=== PATIENT | male | born 1980 | race American Indian/Alaskan Native ===

== ENCOUNTER 2018-06-06 11:56 | Emergency (ER) | payer SELFPAY ==
--- NOTE | 2018-06-06 12:51 | Emergency Department Report ---
Chief Complaint: Medical Clearance Stated Complaint: HBP Time Seen by Provider: 06/06/18 12:47 - HPI History of Present Illness: This is a 37 y.o. male that presents to ED for elevated blood pressure. Patient states he was walking by [email or web address] [facility] when he started feeling dizzy. A inclinometer tester checked his blood pressure and told him he need to go directly to the emergency room. - ROS Review of Systems: dizziness - Exam Vital Signs: Vital Signs 06/06/18 12:49 Temperature 97.7 F Pulse Rate 84 Respiratory 18 Rate Blood Pressure 163/113 O2 Sat by Pulse 98 Oximetry MSE screening note: Focused history and physical exam performed. Due to findings the following was ordered: fast track for further evaluation. ED Disposition for MSE Condition: Stable
[2018-06-06] MEDS ORDERED: CATAPRES PO ONE (13:20)
--- NOTE | 2018-06-06 13:22 | Emergency Department Report ---
ED Recheck HPI - General Chief Complaint: Medical Clearance Stated Complaint: HBP Time Seen by Provider: 06/06/18 12:47 Source: patient Mode of arrival: Ambulatory Limitations: No Limitations - History of Present Illness Initial Comments: 37 yo AA male, new to the area, was walking when he felt dizzy. He was near fire dept so he went in and they checked his bp it was 195/120- they told him to come to ER BP on arrival 163/113 on arrival no cp no sob no dizziness on arrival no focal neuro def pmh none psh none rx none mom a/w with htn dad a/w cig denies drugs or etoh -: Sudden - Related Data Previous Rx's Medication Instructions Recorded Last Taken Type Amlodipine Besylate [Norvasc] 5 mg PO DAILY #30 tablet 06/06/18 Unknown Rx Allergies Allergy/AdvReac Type Severity Reaction Status Date / Time No Known Allergies Allergy Unverified 06/06/18 12:04 ED Review of Systems ROS: Stated complaint: HBP Other details as noted in HPI Comment: All other systems reviewed and negative Constitutional: denies: see HPI Eyes: denies: eye pain ENT: denies: ear pain Respiratory: denies: see HPI Cardiovascular: denies: dyspnea on exertion Endocrine: denies: excessive sweating Gastrointestinal: denies: abdominal pain Genitourinary: denies: as per HPI Musculoskeletal: denies: back pain Skin: denies: lesions Neurological: as per HPI. denies: headache Psychiatric: denies: anxiety Hematological/Lymphatic: denies: easy bleeding ED Past Medical Hx - Past Medical History Previous Medical History?: No - Surgical History Past Surgical History?: No - Family History Family history: no significant - Social History Smoking Status: Current Every Day Smoker Substance Use Type: None - Medications Home Medications: Home Medications Medication Instructions Recorded Confirmed Last Taken Type Amlodipine Besylate [Norvasc] 5 mg PO DAILY #30 tablet 06/06/18 Unknown Rx ED Physical Exam - General Limitations: No Limitations General appearance: alert, in no apparent distress - Head Head exam: Present: atraumatic - Eye Eye exam: Present: normal appearance, PERRL - ENT ENT exam: Present: mucous membranes moist - Neck Neck exam: Present: normal inspection - Respiratory Respiratory exam: Present: normal lung sounds bilaterally - Cardiovascular Cardiovascular Exam: Present: regular rate - GI/Abdominal GI/Abdominal exam: Present: soft, normal bowel sounds - Rectal Rectal exam: Present: deferred - exam: Present: normal inspection External exam: Present: normal external exam - Extremities Exam Extremities exam: Present: normal inspection, full ROM - Back Exam Back exam: Present: normal inspection, full ROM, tenderness - Neurological Exam Neurological exam: Present: alert, oriented X3, CN II-XII intact, normal gait - Psychiatric Psychiatric exam: Present: normal affect, normal mood - Skin Skin exam: Present: warm, dry, intact ED Course Vital Signs 06/06/18 06/06/18 12:49 13:32 Temperature 97.7 F Pulse Rate 84 79 Respiratory 18 Rate Blood Pressure 163/113 171/108 O2 Sat by Pulse 98 Oximetry ED Recheck MDM - Medical Decision Making medicated with clonidine labs noted Cr normal reexam - no focal neuro def will dc home with [facility] and follow up with pcp referral Labs 06/06/18 06/06/18 13:39 13:39 WBC 7.1 RBC 5.18 H Hgb 15.4 H Hct 43.9 MCV 85 MCH 30 MCHC 35 H RDW 13.9 Plt Count 283 Lymph % (Auto) 43.2 H Gonzales % (Auto) 9.3 H Eos % (Auto) 3.4 Baso % (Auto) 1.0 Lymph # 3.1 Gonzales # 0.7 Eos # 0.2 Baso # 0.1 Seg Neutrophils % 43.1 Seg Neutrophils # 3.0 Sodium 143 Potassium 4.4 Chloride 108.2 H Carbon Dioxide 23 Anion Gap 16 BUN 15 Creatinine 1.2 Estimated GFR > 60 BUN/Creatinine Ratio 13 Glucose 114 H Calcium 9.1 Lab Results 06/06/18 06/06/18 Range/Units 13:39 13:39 WBC 7.1 (4.5-11.0) K/mm3 RBC 5.18 H (3.65-5.03) M/mm3 Hgb 15.4 H (11.8-15.2) gm/dl Hct 43.9 (35.5-45.6) % MCV 85 (84-94) fl MCH 30 (28-32) pg MCHC 35 H (32-34) % RDW 13.9 (13.2-15.2) % Plt Count 283 (140-440) K/mm3 Lymph % (Auto) 43.2 H (13.4-35.0) % Gonzales % (Auto) 9.3 H (0.0-7.3) % Eos % (Auto) 3.4 (0.0-4.3) % Baso % (Auto) 1.0 (0.0-1.8) % Lymph # 3.1 (1.2-5.4) K/mm3 Gonzales # 0.7 (0.0-0.8) K/mm3 Eos # 0.2 (0.0-0.4) K/mm3 Baso # 0.1 (0.0-0.1) K/mm3 Seg Neutrophils % 43.1 (40.0-70.0) % Seg Neutrophils # 3.0 (1.8-7.7) K/mm3 Sodium 143 (137-145) mmol/L Potassium 4.4 (3.6-5.0) mmol/L Chloride 108.2 H (98-107) mmol/L Carbon Dioxide 23 (22-30) mmol/L Anion Gap 16 mmol/L BUN 15 (9-20) mg/dL Creatinine 1.2 (0.8-1.5) mg/dL Estimated GFR > 60 ml/min BUN/Creatinine Ratio 13 % Glucose 114 H (75-100) mg/dL Calcium 9.1 (8.4-10.2) mg/dL Vital Signs 06/06/18 06/06/18 12:49 13:32 Temperature 97.7 F Pulse Rate 84 79 Respiratory 18 Rate Blood Pressure 163/113 171/108 O2 Sat by Pulse 98 Oximetry Critical care attestation.: If time is entered above; I have spent that time in minutes in the direct care of this critically ill patient, excluding procedure time. ED Disposition Clinical Impression: Hypertension Disposition: - TO HOME OR SELFCARE Is pt being admited?: No Does the pt Need Aspirin: No Condition: Stable Instructions: DASH Eating Plan (ED), Hypertension (ED) Additional Instructions: MED ORDERED today daily follow up with pcp referral below HYDRATE WELL WITH WATER DIET - low fat, low salt ACTIVITY TOLERATED Prescriptions: Amlodipine Besylate [Norvasc] 5 mg PO DAILY #30 tablet Referrals: LINDSAY TALAVERA MD [Primary Care Provider] - 3-5 Days [facility] [Outside] - 3-5 Days Time of Disposition: 14:04
[2018-06-06 13:48] LABS: Basophils # (Auto) 0.1 K/mm3 (0.0-0.1); Eosinophils # (Auto) 0.2 K/mm3 (0.0-0.4); Eosinophils % (Auto) 3.4 % (0.0-4.3); Hematocrit 43.9 % (35.5-45.6); Hemoglobin 15.4 gm/dl (11.8-15.2); Lymphocytes # (Auto) 3.1 K/mm3 (1.2-5.4); Lymphocytes % (Auto) 43.2 % (13.4-35.0); Mean Corpuscular HGB Conc 35 % (32-34); Mean Corpuscular Volume 85 fl (84-94); Monocytes # (Auto) 0.7 K/mm3 (0.0-0.8); Monocytes % (Auto) 9.3 % (0.0-7.3); Platelet Count 283 K/mm3 (140-440); Red Blood Count 5.18 M/mm3 (3.65-5.03); Red Cell Distribution Width 13.9 % (13.2-15.2)
[2018-06-06 14:00] LABS: BUN/Creatinine Ratio 13; Blood Urea Nitrogen 15 mg/dL (9-20); Calcium 9.1 mg/dL (8.4-10.2); Hemolysis Index 8
[2018-06-06 14:35] VITALS: BP 140/88
== END 2018-06-06 14:33 | disposition home or self-care (01) ==
LOC: ED 11:56
DX: I10 Essential (primary) hypertension (principal); F17.200 Nicotine dependence, unspecified, uncomplicated
CPT/HCPCS: 36415; 80048; 85025; 99283

== ENCOUNTER 2018-09-04 16:26 | Emergency (ER) | payer SELFPAY ==
[2018-09-04 16:55] VITALS: BP 189/113
[2018-09-04] MEDS ORDERED: NORVASC PO ONE (16:58)
--- NOTE | 2018-09-04 16:59 | Emergency Department Report ---
ED Recheck HPI - General Chief Complaint: Medical Clearance Stated Complaint: HIGH BP/MEDICAL CLEARANCE Time Seen by Provider: 09/04/18 16:52 Source: patient Mode of arrival: Ambulatory Limitations: No Limitations - History of Present Illness Initial Comments: This is a 38-year-old male nontoxic well in appearance with no signs of distress presents to the ED with complaint of uncontrolled hypertension. Stated has not been taking Norvasc for a few months. Stated has had intermittent headaches but curretnly in the ED denies any headaches. Denies any fever, chills, headache, nausea, vomiting, chest pain or SOB. Denies any other complaints. Denies any allergies. Symptoms Since Prior Visit: no new symptoms Associated Symptoms: none. denies: fever, chills, chest pain, shortness of breath, rash, malaise, nas[place], abdominal pain - Related Data Previous Rx's Medication Instructions Recorded Last Taken Type Amlodipine Besylate [Norvasc] 5 mg PO DAILY #30 tablet 06/06/18 Unknown Rx amLODIPine [Norvasc] 10 mg PO DAILY #30 tab 09/04/18 Unknown Rx Allergies Allergy/AdvReac Type Severity Reaction Status Date / Time No Known Allergies Allergy Unverified 06/06/18 12:04 ED Review of Systems ROS: Stated complaint: HIGH BP/MEDICAL CLEARANCE Other details as noted in HPI Constitutional: denies: chills, fever Eyes: denies: eye pain, eye discharge, vision change ENT: denies: ear pain, throat pain Respiratory: denies: cough, shortness of breath, wheezing Cardiovascular: denies: chest pain, palpitations Endocrine: no symptoms reported Gastrointestinal: denies: abdominal pain, nausea, diarrhea Genitourinary: denies: urgency, dysuria Musculoskeletal: denies: back pain, joint swelling, arthralgia Skin: denies: rash, lesions Neurological: denies: headache, weakness, paresthesias Psychiatric: denies: anxiety, depression Hematological/Lymphatic: denies: easy bleeding, easy bruising ED Past Medical Hx - Past Medical History Previous Medical History?: No - Surgical History Past Surgical History?: No - Social History Smoking Status: Current Every Day Smoker Substance Use Type: None - Medications Home Medications: Home Medications Medication Instructions Recorded Confirmed Last Taken Type Amlodipine Besylate [Norvasc] 5 mg PO DAILY #30 tablet 06/06/18 Unknown Rx amLODIPine [Norvasc] 10 mg PO DAILY #30 tab 09/04/18 Unknown Rx ED Physical Exam - General Limitations: No Limitations General appearance: alert, in no apparent distress - Head Head exam: Present: atraumatic, normocephalic - Neck Neck exam: Present: normal inspection, full ROM - Respiratory Respiratory exam: Present: normal lung sounds bilaterally. Absent: respiratory distress, wheezes, rales, rhonchi, stridor, chest wall tenderness, accessory muscle use, decreased breath sounds, prolonged expiratory - Cardiovascular Cardiovascular Exam: Present: regular rate, normal rhythm, normal heart sounds. Absent: bradycardia, tachycardia, irregular rhythm, systolic murmur, diastolic murmur, rubs, gallop - Extremities Exam Extremities exam: Present: normal inspection, full ROM - Back Exam Back exam: Present: normal inspection, full ROM - Neurological Exam Neurological exam: Present: alert, oriented X3 - Psychiatric Psychiatric exam: Present: normal affect, normal mood - Skin Skin exam: Present: warm, dry, intact, normal color. Absent: rash ED Course - Reevaluation(s) Reevaluation #1: 09/04/18 16:56 Patient is speaking in full sentences with no signs of distress noted. ED Recheck MDM - Medical Decision Making Patient was instructed to keep a daily diary of blood pressure and to present it to primary care doctor. Patient received first dose of Norvasc in the ED. Will discharge with Norvasc as well. Patient is asymptotic currently in the ED. Patient was instructed to Follow-up with a primary care doctor in 3-5 days or if symptoms worsen and continue return to emergency room as soon as possible. At time of discharge, the patient does not seem toxic or ill in appearance. No acute signs of distress noted. Patient agrees to discharge treatment plan of care. No further questions noted by the patient. Critical care attestation.: If time is entered above; I have spent that time in minutes in the direct care of this critically ill patient, excluding procedure time. ED Disposition Clinical Impression: Medication refill Hypertension Qualifiers: Hypertension type: unspecified Qualified Code(s): I10 - Essential (primary) hypertension Disposition: DC-01 TO HOME OR SELFCARE Is pt being admited?: No Does the pt Need Aspirin: No Condition: Stable Instructions: Hypertension (ED), Amlodipine (By mouth) Additional Instructions: Follow-up with a primary care doctor in 3-5 days or if symptoms worsen and continue return to emergency room as soon as possible. Prescriptions: amLODIPine [Norvasc] 10 mg PO DAILY #30 tab Referrals: PRIMARY CARE, [Referring] - 3-5 Days ANTHONY AREVALO MD [Staff Physician] - 3-5 Days [facility] [Outside] - 3-5 Days [facility] [Outside] - 3-5 Days Forms: Work/School Release Form(ED)
== END 2018-09-04 17:24 | disposition home or self-care (01) ==
LOC: ED 16:26
DX: I10 Essential (primary) hypertension (principal); Z76.0 Encounter for issue of repeat prescription; F17.200 Nicotine dependence, unspecified, uncomplicated; Z79.899 Other long term (current) drug therapy
CPT/HCPCS: 99282